=== PATIENT | female | born 1970 | race Caucasian/White ===

== ENCOUNTER 2024-11-19 08:28 | Day surgery (SDC) | payer OTHER ==
[2024-11-19] MEDS: Lactated Ringers 1,000 ML IV SCH (08:51)
[2024-11-19] MEDS ORDERED: Propofol 200 MG/20 ML SDV ONE ×2 (09:32→10:20)
[2024-11-19] MEDS ORDERED: fentaNYL 100 MCG/2 ML SDV ONE (09:32)
== END 2024-11-19 11:30 | disposition home or self-care (01) ==
LOC: VM.SDS 08:28
PROVIDERS: ATTEND Student in an Organized Health Care Education/Training Program
DX: Z12.11 Encounter for screening for malignant neoplasm of colon (principal); I10 Essential (primary) hypertension; Z88.8 Allergy status to other drugs, medicaments and biological substances; Z79.899 Other long term (current) drug therapy
CPT/HCPCS: 45378; J2704; J3010; J7120